=== PATIENT | male | born 1995 ===

== ENCOUNTER 2023-09-15 08:16 | Observation (INO) ==
--- NOTE | 2023-09-15 08:35 | Emergency Department Note ---
History of Present Illness General Chief complaint: Abdominal Pain Stated complaint: ABD PAIN History of Present Illness Maximum Pain Intensity: 10 NAME: YONG TOLEDO AGE: 28 SEX: M : 1995 ARRIVES VIA: Walk-In INFORMANT: Patient ED PROVIDER(S): JAMES Bazan, Cesar Cary MD The patient is a 28-year-old male who arrives to the emergency department for evaluation of severe right lower quadrant abdominal pain. He reports that began last night around 10 PM. He reports he has had some nausea, however no vomiting. He denies fever, however he reports significant pain with any type of movement, sitting, standing or walking. He denies testicular pain, urinary discomfort, or difficulty with bowel movements. His vital signs are currently stable, he is afebrile, non-toxic appearing. Home Medications Medication Instructions Recorded Confirmed Type febuxostat 40 mg tablet 40 mg PO DAILY #90 tabs 09/05/23 09/15/23 Rx rosuvastatin 5 mg tablet 5 mg PO DAILY #90 tabs 09/05/23 09/15/23 Rx ketoconazole 2 % shampoo 1 applic topical UD 09/15/23 09/15/23 History Allergies Allergy/AdvReac Type Severity Reaction Status Date / Time nut - unspecified Allergy Intermediate Itching Unverified 09/15/23 11:03 Past Med/Surg History Problem List (Updated 09/15/23 @ 16:11 by JAMES Cee) Acute appendicitis (Acute) Acute kidney injury History of nephrectomy, left Solitary right kidney Hyperuricemia Hydronephrosis Solitary left kidney Social History Smoking Status: Never smoker Second Hand Exposure: No; Do You Dip or Chew Tobacco: No; Tobacco Cessation Education Requested by Patient: No Hx Alcohol Use: No Hx Substance Use: No Preferred Language: Turkmen Visual Impairment: No Limitations Hearing Ability: Normal Sales Communications Manager Required: No Beliefs That Will Affect Care: Moravian Moravian Beliefs: no pork products or meat. fish is okay and shrimp okay. and Cultural marital status: Current Living Situation: Spouse and Family current occupational status: employed current occupation: researcher for [employer] How many Children do You have: 1 Other Information That Helps Us Care for You: No Feels Safe at Home: Yes Safety Concerns: Feels Safe At This Time Diet: regular caffeine: Yes (3 cups coffee week) Physical Activity Frequency: Does not Exercise Seatbelt Use: always Do you think of yourself as: straight/heterosexual Gender Identity: Male Assistive Devices: None Physical Exam Vital Signs Vital Signs - 24 hr 09/15/23 08:27 09/15/23 09:10 09/15/23 12:02 Temperature 37 C Temperature Source Temporal Artery Scan Pulse Rate 67 Pulse Rate [Finger] 52 L Pulse Rhythm [Finger] Regular Respiratory Rate 18 18 Respiratory Effort / Characteristics Non-Labored Spontaneous Respiratory Depth Normal Respiratory Pattern Regular Blood Pressure 139/97 Blood Pressure [Right Arm] 130/89 Blood Pressure Mean 111 Blood Pressure Mean [Right Arm] 102 Pulse Oximetry 99 99 100 Oxygen Delivery Method Room Air Room Air Room Air Sepsis Recent Fever Within 48 Hours No Sepsis New/Unexplained Change in Mental Status No Sepsis Action Taken by Nursing No Action Required VITALS: Vitals are noted on the nurse's note and reviewed by myself. Vital signs stable. GENERAL: 28-year-old male, in no acute distress, nondiaphoretic, well-developed well-nourished. SKIN: The skin was without rashes, erythema, edema, or bruising. HEAD: Normocephalic atraumatic. HEART: Regular rate and rhythm without murmurs gallops or rubs. LUNGS: Clear to auscultation bilaterally without wheezes, rales or rhonchi. No retractions or accessory muscle use. ABDOMEN: Positive bowel sounds x 4. Soft, tender to palpation right lower quadrant, rebound tenderness present. MUSCULOSKELETAL: No muscle atrophy, erythema, or edema noted. Normal gait. Strength 5/5 throughout. NEURO: Patient was alert and oriented to person place and time. No focal neurological deficits. Course Administered Medications Oxycodone/Acetaminophen (Oxycodone/Acetaminophen 5mg/325mg Tab) 1 tab PO Q4H PRN PRN Reason: MODERATE Pain (4,5,6) & Pre PT Stop: 09/29/23 15:00 Last Admin: 09/15/23 15:46 Dose: 1 tab Documented By: SEFERINO Oxycodone/Acetaminophen (Oxycodone/Acetaminophen 5mg/325mg Tab) 2 tab PO Q4H PRN PRN Reason: SEVERE Pain (7,8,9,10) Stop: 09/29/23 15:00 Last Admin: 09/15/23 15:47 Dose: 2 tab Documented By: SEFERINO Discontinued Medications Bupivacaine HCl (Bupivacaine 0.5 % 5 Mg/1 Ml Mpf 30ml Vial) Confirm Administered Dose 30 ml .ROUTE .STK-MED ONE Stop: 09/15/23 12:43 Last Admin: 09/15/23 13:18 Dose: 30 ml Documented By: GEORGINA Sodium Chloride (Nss) 1,000 mls @ 999 mls/hr IV .Q1H1M STA Stop: 09/15/23 09:44 Last Infusion: 09/15/23 10:30 Dose: Infused Documented By: Admin: 09/15/23 08:54 Dose: 999 mls/hr Documented By: HI Ceftriaxone Sodium (Rocephin) 2,000 mg in 50 mls @ 100 mls/hr IV NOW STA Stop: 09/15/23 10:19 Last Infusion: 09/15/23 10:39 Dose: Infused Documented By: Admin: 09/15/23 10:06 Dose: 100 mls/hr Documented By: HI Metronidazole (Flagyl) 500 mg in 100 mls @ 100 mls/hr IV NOW STA; Protocol Stop: 09/15/23 10:49 Last Infusion: 09/15/23 11:51 Dose: Infused Documented By: Admin: 09/15/23 10:06 Dose: 100 mls/hr Documented By: HI Ioversol (Optiray 320 100ml) 94 ml IV ONCE ONE Stop: 09/15/23 09:30 Last Admin: 09/15/23 09:29 Dose: 94 ml Documented By: PRABHU Morphine Sulfate (Morphine Sulfate 4 Mg/Ml 1 Ml Carp\Vial) 4 mg IV NOW STA Stop: 09/15/23 08:45 Last Admin: 09/15/23 08:54 Dose: 4 mg Documented By: HI Morphine Sulfate (Morphine Sulfate 4 Mg/Ml 1 Ml Carp\Vial) 4 mg IV NOW STA Stop: 09/15/23 09:54 Last Admin: 09/15/23 10:06 Dose: 4 mg Documented By: HI Ondansetron HCl (Ondansetron Inj 2 Mg/Ml 2 Ml Vial) 4 mg IV NOW STA Stop: 09/15/23 08:45 Last Admin: 09/15/23 08:53 Dose: 4 mg Documented By: HI Medical Decision Making Differential Diagnosis Appendicitis, testicular torsion, infections, diverticulitis, UTI, obstruction, mesenteric ischemia, aortic pathology, inflammatory bowel disease, renal colic, PUD, pancreatitis, biliary pathology, hernia, volvulus, constipation, as well as other pathologies. Medical Records Attestation: I reviewed the patient's medical records. Home Medications Current Medication List: was personally reviewed by me Laboratory Data Attestation: I reviewed the patient's lab results. Leukocytosis, 13.93. Stable hemoglobin and hematocrit, no electrolyte abnormalities lactate 1.0 urinalysis negative for infection 09/15/23 08:50 09/15/23 08:50 Lab Results 09/15/23 09/15/23 09/15/23 Range/Units 08:50 09:02 09:07 WBC 13.93 H (4.8-10.8) K/ul RBC 5.45 (4.70-6.10) M/uL Hgb 15.2 (14.0-18.0) g/dl POC Hgb 14.3 (14.0-18.0) g/dl Hct 45.7 (42.0-52.0) % POC Hct 42 (42-52) % MCV 83.9 (80.0-100.0) fL MCH 27.9 (25.0-34.0) pg MCHC 33.3 (32.0-36.0) g/dL RDW Std Deviation 37.8 (36.4-46.3) fL RDW Coeff of Sabrina 12.5 (11.5-14.5) % Plt Count 220 (130-400) K/uL MPV 12.1 (9.4-12.4) fL Immature Gran % (Auto) 0.5 % Neut % (Auto) 79.1 % Lymph % (Auto) 14.0 % Pender % (Auto) 5.8 % Eos % (Auto) 0.4 % Baso % (Auto) 0.2 % Neut # (Auto) 11.02 H (1.40-6.50) K/uL Lymph # (Auto) 1.95 (1.20-3.40) K/uL Pender # (Auto) 0.81 H (0.11-0.59) K/uL Eos # (Auto) 0.05 (0.00-0.50) K/uL Baso # (Auto) 0.03 (0.00-0.20) K/uL Immature Gran # (Auto) 0.07 (0.01-0.20) K/uL POC Sodium 140 (135-144) mmol/L Sodium 138 (136-145) mmol/L POC Potassium 3.8 (3.3-5.0) mmol/L Potassium 4.1 (3.5-5.1) mmol/L POC Chloride 103 (101-112) mmol/L Chloride 103 (98-107) mmol/L Carbon Dioxide 29 (21-32) mmol/L POC Total CO2 28 (24-31) mmol/L Anion Gap 6 (3-11) POC Anion Gap 14.0 L (16-25) mmol/L POC BUN 14 (7-18) mg/dl BUN 15 (6-23) mg/dl Creatinine 1.17 (0.6-1.4) mg/dl POC Creatinine 1.2 (0.6-1.3) mg/dl Est Cr Clr Drug Dosing 91.4 ml/min Est GFR ( Amer) 98.4 ml/min Est GFR (Non-Af Amer) 84.9 ml/min BUN/Creatinine Ratio 12.8 (10-20) Glucose 109 H (70-99(Fasting)) mg/dl POC Glucose (other) 108 H (70-99) mg/dl Lactate 1.0 (0.4-2.0) mmol/L Calcium 10.4 H (8.6-10.3) mg/dl POC Ioniz Calcium Chelita 1.15 (1.12-1.32) mmol/l Total Bilirubin 0.4 (0.2-1.0) mg/dl AST 25 (13-39) U/L ALT 36 (7-52) U/L Alkaline Phosphatase 52 (34-104) U/L Total Protein 7.9 (6.0-8.3) gm/dl Albumin 4.8 (3.4-5.0) gm/dl Globulin 3.1 (2.5-4.0) gm/dl Albumin/Globulin Ratio 1.5 (0.9-2) Lipase 17 (11-82) U/L Urine Color Urine Appearance (Clear) Urine pH (4.5-7.5) Ur Specific [place] (1.000-1.030) Urine Protein (Negative) Urine Glucose (UA) (Negative) Urine Ketones (Negative) Urine Blood (Negative) Urine Nitrite (Negative) Urine Bilirubin (Negative) Urine Urobilinogen (Negative) Ur Leukocyte Esterase (Negative) 09/15/23 Range/Units 09:15 WBC (4.8-10.8) K/ul RBC (4.70-6.10) M/uL Hgb (14.0-18.0) g/dl POC Hgb (14.0-18.0) g/dl Hct (42.0-52.0) % POC Hct (42-52) % MCV (80.0-100.0) fL MCH (25.0-34.0) pg MCHC (32.0-36.0) g/dL RDW Std Deviation (36.4-46.3) fL RDW Coeff of Sabrina (11.5-14.5) % Plt Count (130-400) K/uL MPV (9.4-12.4) fL Immature Gran % (Auto) % Neut % (Auto) % Lymph % (Auto) % Pender % (Auto) % Eos % (Auto) % Baso % (Auto) % Neut # (Auto) (1.40-6.50) K/uL Lymph # (Auto) (1.20-3.40) K/uL Pender # (Auto) (0.11-0.59) K/uL Eos # (Auto) (0.00-0.50) K/uL Baso # (Auto) (0.00-0.20) K/uL Immature Gran # (Auto) (0.01-0.20) K/uL POC Sodium (135-144) mmol/L Sodium (136-145) mmol/L POC Potassium (3.3-5.0) mmol/L Potassium (3.5-5.1) mmol/L POC Chloride (101-112) mmol/L Chloride (98-107) mmol/L Carbon Dioxide (21-32) mmol/L POC Total CO2 (24-31) mmol/L Anion Gap (3-11) POC Anion Gap (16-25) mmol/L POC BUN (7-18) mg/dl BUN (6-23) mg/dl Creatinine (0.6-1.4) mg/dl POC Creatinine (0.6-1.3) mg/dl Est Cr Clr Drug Dosing ml/min Est GFR ( Amer) ml/min Est GFR (Non-Af Amer) ml/min BUN/Creatinine Ratio (10-20) Glucose (70-99(Fasting)) mg/dl POC Glucose (other) (70-99) mg/dl Lactate (0.4-2.0) mmol/L Calcium (8.6-10.3) mg/dl POC Ioniz Calcium [place] (1.12-1.32) mmol/l Total Bilirubin (0.2-1.0) mg/dl AST (13-39) U/L ALT (7-52) U/L Alkaline Phosphatase (34-104) U/L Total Protein (6.0-8.3) gm/dl Albumin (3.4-5.0) gm/dl Globulin (2.5-4.0) gm/dl Albumin/Globulin Ratio (0.9-2) Lipase (11-82) U/L Urine Color Yellow Urine Appearance Clear (Clear) Urine pH 5.5 (4.5-7.5) Ur Specific [place] 1.016 (1.000-1.030) Urine Protein Negative (Negative) Urine Glucose (UA) Negative (Negative) Urine Ketones Negative (Negative) Urine Blood Negative (Negative) Urine Nitrite Negative (Negative) Urine Bilirubin Negative (Negative) Urine Urobilinogen Negative (Negative) Ur Leukocyte Esterase Negative (Negative) Imaging Data Radiologist's Impression: Abdomen/Pelvis CT 09/15/23 08:44 CT SCAN OF THE ABDOMEN AND PELVIS WITH IV CONTRAST CLINICAL HISTORY: Right lower quadrant abdominal pain. COMPARISON STUDY: No priors. TECHNIQUE: Following the IV administration of 94 cc of Optiray 320, CT scan of the abdomen and pelvis is performed from the lung bases to the proximal femora. Images are reviewed in the axial, sagittal, and coronal planes. IV contrast was administered without complication. A dose lowering technique was utilized adhering to the principles of ALARA. CT DOSE: 993.49 mGy.cm FINDINGS: Lung bases: The heart is normal in size and without pericardial effusion. The lung bases are clear. Liver: The contrast-enhanced liver is normal in size, contour, and attenuation. There is no intrahepatic biliary ductal dilatation. The hepatic veins and portal veins are patent. Gallbladder: Unremarkable. Spleen: Normal in size and attenuation. Pancreas: Unremarkable. Adrenal glands: Unremarkable. Kidneys: The left kidney is not identified and presumed congenitally versus surgically absent. The right kidney is normal in size and without hydronephrosis. The right kidney enhances normally. Abdominal vasculature: The abdominal aorta is normal in course and caliber noting mild but age is advanced atherosclerotic plaque. Bowel: There is no bowel obstruction. The mid to distal appendix is dilated and fluid-filled, measuring up to 10 mm in diameter. This is best seen on axial image #274. The appendiceal wall is thickened and hyperemic with surrounding infiltration and trace fluid. Findings are consistent with acute appendicitis. No abscess is seen. Peritoneum: No intraperitoneal free air is seen. There is trace free fluid in the pelvis.. Lymphadenopathy: None. Pelvic viscera: The bladder, prostate, and seminal vesicles are normal as visualized. Skeletal structures: No lytic or blastic lesions are seen. IMPRESSION: 1. Mild acute appendicitis. There is no evidence of abscess or perforation. 2. Trace free fluid in the pelvis is nonspecific and likely reactive. 3. The left kidney is not identified and presumed congenitally versus surgically absent. Correlate clinically. 4. Additional findings as above. ACT 112: Negative or not required by law. Electronically signed by: Mynor Gray M.D. 09/15/2023 9:44 AM Blood Pressure Blood Pressure Findings: Normal blood pressure MDM Narrative The patient is a 28-year-old male who arrives to the emergency department for the above-stated complaint. Upon examination the patient appears to present as an acute appendicitis. Saline lock was established, CBC, CMP, lactate, urinalysis were obtained. CBC shows a leukocytosis of 13.93, stable hemoglobin and hematocrit, CMP is unremarkable, lactate is negative, urinalysis is negative for infection. CT imaging of the abdomen and pelvis with IV contrast was obtained which showed a mild acute appendicitis. There is no evidence of abscess or perforation. Patient was started on IV fluids, IV Rocephin, as well as IV Flagyl. He was provided with IV morphine and IV Zofran for nausea and pain. Consult from Dr. Carrion from general surgery was obtained who recommended surgical intervention. Dr. Carrion will accept the patient under her care at this time, please refer to her documentation for further patient evaluation and treatment. Impression & Plan Acute appendicitis Discharge Plan Visit Data Chief Complaint: Abdominal Pain Stated Complaint: ABD PAIN ED Provider: Cesar Cary ED Midlevel Provider: Yesica Tracy Discharge Problem: Acute appendicitis Discharge Problem: Acute appendicitis Qualifiers: Acute appendicitis type: other Qualified Code(s): K35.890 - Other acute appendicitis without perforation or gangrene
[2023-09-15] MEDS: ONDANSETRON INJ 2 MG/ML 2 ML VIAL IV STA (08:53)
[2023-09-15] MEDS: MoRPHine SULFATE 4 MG/ML 1 ML CARP\\VIAL IV STA ×2 (08:54→10:06)
[2023-09-15] MEDS: SODIUM CHLORIDE 0.9% 1,000 ML IV STA (08:54)
[2023-09-15 09:18] LABS: Basophils # (auto) 0.03 K/uL (0.00-0.20); Basophils % (auto) 0.2 %; Eosinophils # (auto) 0.05 K/uL (0.00-0.50); Eosinophils % (auto) 0.4 %; Hematocrit (blood only) 45.7 % (42.0-52.0); Hemoglobin 15.2 g/dl (14.0-18.0); Immature Granulocytes # (auto) 0.07 K/uL (0.01-0.20); Immature Granulocytes % (auto) 0.5 %; Lymphocytes # (auto) 1.95 K/uL (1.20-3.40); Mean Corpuscular Hemoglobin 27.9 pg (25.0-34.0); Mean Corpuscular Hgb Conc 33.3 g/dL (32.0-36.0); Mean Corpuscular Volume 83.9 fL (80.0-100.0); Mean Platelet Volume 12.1 fL (9.4-12.4); Monocytes # (auto) 0.81 K/uL (0.11-0.59); Monocytes % (auto) 5.8 %; Neutrophils # (auto) 11.02 K/uL (1.40-6.50); Neutrophils % (auto) 79.1 %; Platelet Count 220 K/uL (130-400); RDW Coefficient of Variation 12.5 % (11.5-14.5); RDW Standard Deviation 37.8 fL (36.4-46.3); Red Blood Count 5.45 M/uL (4.70-6.10); White Blood Count 13.93 K/ul (4.8-10.8)
[2023-09-15 09:20] LABS: iSTAT Creatinine 1.2 mg/dl (0.6-1.3); iSTAT Hemoglobin 14.3 g/dl (14.0-18.0); iSTAT Ionized Calcium 1.15 mmol/l (1.12-1.32); iSTAT Potassium 3.8 mmol/L (3.3-5.0)
[2023-09-15 09:27] LABS: Albumin Globulin Ratio 1.5 (0.9-2); Albumin Level 4.8 gm/dl (3.4-5.0); BUN Creatinine Ratio 12.8 (10-20); Bilirubin,Total 0.4 mg/dl (0.2-1.0); Calcium 10.4 mg/dl (8.6-10.3); Creatinine Clr Calc Pharmacy 91.4 ml/min; Est GFR (African American) 98.4 ml/min; Est GFR (Non-African American) 84.9 ml/min; Globulin 3.1 gm/dl (2.5-4.0); Potassium 4.1 mmol/L (3.5-5.1); Total Protein 7.9 gm/dl (6.0-8.3)
[2023-09-15] MEDS: OPTIRAY 320 100ml IV ONE (09:29)
[2023-09-15 09:36] LABS: Appearance Urine Clear (Clear); Bilirubin Urine Negative (Negative); Blood Urine Negative (Negative); Color Urine Yellow; Glucose Urine UA Negative (Negative); Ketones Urine Negative (Negative); Leukocyte Esterase Urine Negative (Negative); Nitrite Urine Negative (Negative); Protein Urine Negative (Negative); Specific Gravity Urine 1.016 (1.000-1.030); Urobilinogen Urine Negative (Negative); pH Urine 5.5 (4.5-7.5)
--- NOTE | 2023-09-15 09:47 | CT Scan Report ---
CT SCAN OF THE ABDOMEN AND PELVIS WITH IV CONTRAST CLINICAL HISTORY: Right lower quadrant abdominal pain. COMPARISON STUDY: No priors. TECHNIQUE: Following the IV administration of 94 cc of Optiray 320, CT scan of the abdomen and pelvi s is performed from the lung bases to the proximal femora. Images are reviewed in the axial, sagittal , and coronal planes. IV contrast was administered without complication. A dose lowering technique wa s utilized adhering to the principles of ALARA. CT DOSE: 993.49 mGy.cm FINDINGS: Lung bases: The heart is normal in size and without pericardial effusion. The lung bases are clear. Liver: The contrast-enhanced liver is normal in size, contour, and attenuation. There is no intrahepa tic biliary ductal dilatation. The hepatic veins and portal veins are patent. Gallbladder: Unremarkable. Spleen: Normal in size and attenuation. Pancreas: Unremarkable. Adrenal glands: Unremarkable. Kidneys: The left kidney is not identified and presumed congenitally versus surgically absent. The ri ght kidney is normal in size and without hydronephrosis. The right kidney enhances normally. Abdominal vasculature: The abdominal aorta is normal in course and caliber noting mild but age is adv anced atherosclerotic plaque. Bowel: There is no bowel obstruction. The mid to distal appendix is dilated and fluid-filled, measuri ng up to 10 mm in diameter. This is best seen on axial image #274. The appendiceal wall is thickened and hyperemic with surrounding infiltration and trace fluid. Findings are consistent with acute appen dicitis. No abscess is seen. Peritoneum: No intraperitoneal free air is seen. There is trace free fluid in the pelvis.. Lymphadenopathy: None. Pelvic viscera: The bladder, prostate, and seminal vesicles are normal as visualized. Skeletal structures: No lytic or blastic lesions are seen. IMPRESSION: 1. Mild acute appendicitis. There is no evidence of abscess or perforation. 2. Trace free fluid in the pelvis is nonspecific and likely reactive. 3. The left kidney is not identified and presumed congenitally versus surgically absent. Correlate cl inically. 4. Additional findings as above. ACT 112: Negative or not required by law. Electronically signed by: Mynor Gray M.D. 09/15/2023 9:44 AM
[2023-09-15] MEDS: metroNIDAZOLE 500 MG/100 ML BAG IV STA (10:06)
[2023-09-15] MEDS: cefTRIAXone SODIUM 2,000 MG/50 ML BAG IV STA (10:06)
--- NOTE | 2023-09-15 11:15 | History & Physical Report ---
Date of Service September 15, 2023 Assessment & Plan (1) Solitary right kidney: Plan: Will minimize nsaid use (2) Acute appendicitis: Plan: Discussed laparoscopic appendectomy with expected 1-2 week recovery period and overnight hospital stay. Risks of bleeding, infection, postop abscess/ ileus , need for larger open procedure, negative appy all reviewed. Consent signed. For OR today. History of Present Illness Chief Complaint: abdominal pain Primary Care Provider: [facility] 28 yr old man with history of left lap assisted nephrectomy for atrophic left kidney with hydroureternephrosis who presents with right lower quadrant pain of 1 days duration. He notes something similar in 2017 but at that time, the kidney issue was identified and that was concentrated on. Did well until after lunch yesterday when developed a jagging, poking sensation in the abdomen. This was constant and of moderate intensity. Thought it might be acid reflux. Dinner was later than usual (around 10 pm) and after this had severe pain in the right lower quadrant, worse with activity. No fevers at home. No nausea/ vomiting. No change in bowel habits. Now also noticing some chills and legs feel restless. Last PO intake around 2 am. Presented to ER with findings of acute appendicitis on CT scan, mild leukocytosis. Also with history of ACL repairs in both knees. Allergies Allergy/AdvReac Type Severity Reaction Status Date / Time nut - unspecified Allergy Intermediate Itching Unverified 09/15/23 11:03 Home Medications Medication Instructions Recorded Confirmed Type febuxostat 40 mg tablet 40 mg PO DAILY #90 tabs 09/05/23 09/15/23 Rx rosuvastatin 5 mg tablet 5 mg PO DAILY #90 tabs 09/05/23 09/15/23 Rx ketoconazole 2 % shampoo 1 applic topical UD 09/15/23 09/15/23 History Past Med/Surg History Problem List (Updated 09/15/23 @ 11:14 by Sawti Carrion MD) Acute appendicitis Acute kidney injury History of nephrectomy, left Solitary right kidney Hyperuricemia Hydronephrosis Solitary left kidney Social History Smoking Status: Never smoker Do You Dip or Chew Tobacco: No; Hx Alcohol Use: No Hx Substance Use: No Preferred Language: Latvian Visual Impairment: No Limitations Hearing Ability: Normal Brush Polisher Required: No marital status: Current Living Situation: Spouse current occupational status: employed current occupation: researcher for [employer] How many Children do You have: 1 Feels Safe at Home: Yes Diet: regular caffeine: Yes (3 cups coffee week) Physical Activity Frequency: Does not Exercise Seatbelt Use: always Do you think of yourself as: straight/heterosexual Gender Identity: Male Assistive Devices: Glasses Review of Systems Review of Systems: All systems reviewed & are unremarkable except as noted in HPI & below Physical Exam Constitutional: WD/WN, vitals as above Eyes: PERRL, conjunctivae normal, anicteric sclerae Neck: trachea midline, no thyromegaly Respiratory: normal respiratory effort, lungs clear to auscultation Cardiovascular: RRR, no murmur, no edema Gastrointestinal (Abdomen): Inspection/Auscultation: abdomen normal to inspection, normal bowel sounds and + abdominal surgical incision (left flank and lap sites); abdomen not distended Percussion/Palpation: + abdomen tender (pos Rovsing's sign) and abdomen soft; no guarding Musculoskeletal: Extremities: extremities normal to inspection Neurologic: awake; no focal motor deficits Psychiatric: A+Ox3, euthymic affect Results & Data Results & Data Vital Signs (Past 12 Hours) Vital Signs Temp Pulse Resp BP Pulse Ox O2 Del Method 09/15/23 09:10 99 Room Air 09/15/23 08:27 37 C 67 18 139/97 99 Room Air Laboratory Results 09/15/23 09/15/23 09/15/23 Range/Units 09:15 09:07 09:02 WBC (4.8-10.8) K/ul RBC (4.70-6.10) M/uL Hgb (14.0-18.0) g/dl POC Hgb 14.3 (14.0-18.0) g/dl Hct (42.0-52.0) % POC Hct 42 (42-52) % MCV (80.0-100.0) fL MCH (25.0-34.0) pg MCHC (32.0-36.0) g/dL RDW Std Deviation (36.4-46.3) fL RDW Coeff of Sabrina (11.5-14.5) % Plt Count (130-400) K/uL MPV (9.4-12.4) fL Immature Gran % (Auto) % Neut % (Auto) % Lymph % (Auto) % Carroll % (Auto) % Eos % (Auto) % Baso % (Auto) % Neut # (Auto) (1.40-6.50) K/uL Lymph # (Auto) (1.20-3.40) K/uL Carroll # (Auto) (0.11-0.59) K/uL Eos # (Auto) (0.00-0.50) K/uL Baso # (Auto) (0.00-0.20) K/uL Immature Gran # (Auto) (0.01-0.20) K/uL POC Sodium 140 (135-144) mmol/L Sodium (136-145) mmol/L POC Potassium 3.8 (3.3-5.0) mmol/L Potassium (3.5-5.1) mmol/L POC Chloride 103 (101-112) mmol/L Chloride (98-107) mmol/L Carbon Dioxide (21-32) mmol/L POC Total CO2 28 (24-31) mmol/L Anion Gap (3-11) POC Anion Gap 14.0 L (16-25) mmol/L POC BUN 14 (7-18) mg/dl BUN (6-23) mg/dl Creatinine (0.6-1.4) mg/dl POC Creatinine 1.2 (0.6-1.3) mg/dl Est Cr Clr Drug Dosing ml/min Est GFR ( Amer) ml/min Est GFR (Non-Af Amer) ml/min BUN/Creatinine Ratio (10-20) Glucose (70-99(Fasting)) mg/dl POC Glucose (other) 108 H (70-99) mg/dl Lactate 1.0 (0.4-2.0) mmol/L Calcium (8.6-10.3) mg/dl POC Ioniz Calcium Chelita 1.15 (1.12-1.32) mmol/l Total Bilirubin (0.2-1.0) mg/dl AST (13-39) U/L ALT (7-52) U/L Alkaline Phosphatase (34-104) U/L Total Protein (6.0-8.3) gm/dl Albumin (3.4-5.0) gm/dl Globulin (2.5-4.0) gm/dl Albumin/Globulin Ratio (0.9-2) Lipase (11-82) U/L Urine Color Yellow Urine Appearance Clear (Clear) Urine pH 5.5 (4.5-7.5) Ur Specific [place] 1.016 (1.000-1.030) Urine Protein Negative (Negative) Urine Glucose (UA) Negative (Negative) Urine Ketones Negative (Negative) Urine Blood Negative (Negative) Urine Nitrite Negative (Negative) Urine Bilirubin Negative (Negative) Urine Urobilinogen Negative (Negative) Ur Leukocyte Esterase Negative (Negative) 09/15/23 Range/Units 08:50 WBC 13.93 H (4.8-10.8) K/ul RBC 5.45 (4.70-6.10) M/uL Hgb 15.2 (14.0-18.0) g/dl POC Hgb (14.0-18.0) g/dl Hct 45.7 (42.0-52.0) % POC Hct (42-52) % MCV 83.9 (80.0-100.0) fL MCH 27.9 (25.0-34.0) pg MCHC 33.3 (32.0-36.0) g/dL RDW Std Deviation 37.8 (36.4-46.3) fL RDW Coeff of Sabrina 12.5 (11.5-14.5) % Plt Count 220 (130-400) K/uL MPV 12.1 (9.4-12.4) fL Immature Gran % (Auto) 0.5 % Neut % (Auto) 79.1 % Lymph % (Auto) 14.0 % Carroll % (Auto) 5.8 % Eos % (Auto) 0.4 % Baso % (Auto) 0.2 % Neut # (Auto) 11.02 H (1.40-6.50) K/uL Lymph # (Auto) 1.95 (1.20-3.40) K/uL Carroll # (Auto) 0.81 H (0.11-0.59) K/uL Eos # (Auto) 0.05 (0.00-0.50) K/uL Baso # (Auto) 0.03 (0.00-0.20) K/uL Immature Gran # (Auto) 0.07 (0.01-0.20) K/uL POC Sodium (135-144) mmol/L Sodium 138 (136-145) mmol/L POC Potassium (3.3-5.0) mmol/L Potassium 4.1 (3.5-5.1) mmol/L POC Chloride (101-112) mmol/L Chloride 103 (98-107) mmol/L Carbon Dioxide 29 (21-32) mmol/L POC Total CO2 (24-31) mmol/L Anion Gap 6 (3-11) POC Anion Gap (16-25) mmol/L POC BUN (7-18) mg/dl BUN 15 (6-23) mg/dl Creatinine 1.17 (0.6-1.4) mg/dl POC Creatinine (0.6-1.3) mg/dl Est Cr Clr Drug Dosing 91.4 ml/min Est GFR ( Amer) 98.4 ml/min Est GFR (Non-Af Amer) 84.9 ml/min BUN/Creatinine Ratio 12.8 (10-20) Glucose 109 H (70-99(Fasting)) mg/dl POC Glucose (other) (70-99) mg/dl Lactate (0.4-2.0) mmol/L Calcium 10.4 H (8.6-10.3) mg/dl POC Ioniz Calcium Chelita (1.12-1.32) mmol/l Total Bilirubin 0.4 (0.2-1.0) mg/dl AST 25 (13-39) U/L ALT 36 (7-52) U/L Alkaline Phosphatase 52 (34-104) U/L Total Protein 7.9 (6.0-8.3) gm/dl Albumin 4.8 (3.4-5.0) gm/dl Globulin 3.1 (2.5-4.0) gm/dl Albumin/Globulin Ratio 1.5 (0.9-2) Lipase 17 (11-82) U/L Urine Color Urine Appearance (Clear) Urine pH (4.5-7.5) Ur Specific [place] (1.000-1.030) Urine Protein (Negative) Urine Glucose (UA) (Negative) Urine Ketones (Negative) Urine Blood (Negative) Urine Nitrite (Negative) Urine Bilirubin (Negative) Urine Urobilinogen (Negative) Ur Leukocyte Esterase (Negative) Diagnostic Findings CT SCAN OF THE ABDOMEN AND PELVIS WITH IV CONTRAST CLINICAL HISTORY: Right lower quadrant abdominal pain. COMPARISON STUDY: No priors. TECHNIQUE: Following the IV administration of 94 cc of Optiray 320, CT scan of the abdomen and pelvis is performed from the lung bases to the proximal femora. Images are reviewed in the axial, sagittal, and coronal planes. IV contrast was administered without complication. A dose lowering technique was utilized adhering to the principles of ALARA. CT DOSE: 993.49 mGy.cm FINDINGS: Lung bases: The heart is normal in size and without pericardial effusion. The lung bases are clear. Liver: The contrast-enhanced liver is normal in size, contour, and attenuation. There is no intrahepatic biliary ductal dilatation. The hepatic veins and portal veins are patent. Gallbladder: Unremarkable. Spleen: Normal in size and attenuation. Pancreas: Unremarkable. Adrenal glands: Unremarkable. Kidneys: The left kidney is not identified and presumed congenitally versus surgically absent. The right kidney is normal in size and without hydronephrosis. The right kidney enhances normally. Abdominal vasculature: The abdominal aorta is normal in course and caliber noting mild but age is advanced atherosclerotic plaque. Bowel: There is no bowel obstruction. The mid to distal appendix is dilated and fluid-filled, measuring up to 10 mm in diameter. This is best seen on axial image #274. The appendiceal wall is thickened and hyperemic with surrounding infiltration and trace fluid. Findings are consistent with acute appendicitis. No abscess is seen. Peritoneum: No intraperitoneal free air is seen. There is trace free fluid in the pelvis.. Lymphadenopathy: None. Pelvic viscera: The bladder, prostate, and seminal vesicles are normal as visualized. Skeletal structures: No lytic or blastic lesions are seen. IMPRESSION: 1. Mild acute appendicitis. There is no evidence of abscess or perforation. 2. Trace free fluid in the pelvis is nonspecific and likely reactive. 3. The left kidney is not identified and presumed congenitally versus surgically absent. Correlate clinically. (2) Acute appendicitis Acute appendicitis type: with localized peritonitis Appendicitis gangrene presence: without gangrene Appendicitis perforation presence: without perforation Appendicitis abscess presence: without abscess Qualified Code(s): K35.30 - Acute appendicitis with localized peritonitis, without perforation or gangrene
[2023-09-15] MEDS ORDERED: fentaNYL citrate PF 100 MCG/2 ML VIAL ONE (11:38)
[2023-09-15] MEDS ORDERED: DEXAMETHASONE SOD INJ 4 MG/ML VIAL ONE (11:38)
[2023-09-15] MEDS ORDERED: ONDANSETRON INJ 2 MG/ML 2 ML VIAL ONE (11:38)
[2023-09-15] MEDS ORDERED: LIDOCAINE 2% 2 ML VIAL/AMP(20MG/ML) INFIL ONE (11:38)
[2023-09-15] MEDS ORDERED: PROPOFOL IV EMULSION 10 MG/ML 20 ML VIAL IV ONE (11:38)
[2023-09-15] MEDS ORDERED: MIDAZOLAM HCL 1 MG/ML 2ML VIAL ONE (11:38)
[2023-09-15] MEDS ORDERED: LARYING-O-JET KIT (LTA) ONE (11:40)
[2023-09-15] MEDS ORDERED: ROCURONIUM BROMIDE 10 MG/ML 5 ML VIAL IV ONE (11:40)
--- NOTE | 2023-09-15 12:11 | Anesthesiology Consultation ---
Date of Service September 15, 2023 Assessment & Plan Chart Review Chart Review: Acceptable Risk for Surgery and Patient NOT seen in Pre Admission Testing Consults Requested none History Surgery Operation Date: 09/15/23 12:00 Proposed Procedures p Laparoscopic Appendectomy - Swati Carrion MD Height/Weight Height: 5 ft 3 in Weight: 85 kg Allergies Allergy/AdvReac Type Severity Reaction Status Date / Time nut - unspecified Allergy Intermediate Itching Unverified 09/15/23 11:03 Medications Home Medications Medication Instructions Recorded Confirmed Last Taken febuxostat 40 mg tablet 40 mg PO DAILY #90 tabs 09/05/23 09/15/23 Unknown rosuvastatin 5 mg tablet 5 mg PO DAILY #90 tabs 09/05/23 09/15/23 Unknown ketoconazole 2 % shampoo 1 applic topical UD 09/15/23 09/15/23 Unknown Social History Smoking Status: Never smoker Do You Dip or Chew Tobacco: No Hx Alcohol Use: No Hx Substance Use: No Physical Exam Vital Signs Last Vital Signs Temp 37 C 09/15/23 08:27 Pulse 52 L 09/15/23 12:02 Resp 18 09/15/23 12:02 BP 130/89 09/15/23 12:02 Pulse Ox 100 09/15/23 12:02 O2 Del Method Room Air 09/15/23 12:02 Testing Laboratory Results 09/15/23 08:50 09/15/23 08:50 Urine Color Yellow 09/15/23 09:15 Urine Appearance Clear (Clear) 09/15/23 09:15 Urine pH 5.5 (4.5-7.5) 09/15/23 09:15 Ur Specific [place] 1.016 (1.000-1.030) 09/15/23 09:15 Urine Protein Negative (Negative) 09/15/23 09:15 Urine Glucose (UA) Negative (Negative) 09/15/23 09:15 Urine Ketones Negative (Negative) 09/15/23 09:15 Urine Nitrite Negative (Negative) 09/15/23 09:15 Ur Leukocyte Esterase Negative (Negative) 09/15/23 09:15 09/15/23 09:07 POC Glucose (other) 108 H
[2023-09-15] MEDS ORDERED: DROPERIDOL 5 MG/2 ML VIAL IV PRN (12:13)
[2023-09-15] MEDS ORDERED: fentaNYL citrate PF 100 MCG/2 ML VIAL IV PRN (12:13)
[2023-09-15] MEDS ORDERED: ATROPINE SULFATE 0.1 MG/ML 10ML SYR IV PRN (12:13)
[2023-09-15] MEDS ORDERED: ePHEDrine sulfate 50 MG/ML AMP IV PRN (12:13)
[2023-09-15] MEDS ORDERED: SUCCINYLCHOLINE 100MG/5ML SYR IV ONE (12:43)
[2023-09-15] MEDS ORDERED: SUGAMMADEX SODIUM 200 MG/2 ML VIAL IV ONE (12:58)
[2023-09-15] MEDS: BUPIVACAINE 0.5 % 5 MG/1 ML MPF 30ML VIAL ONE (13:18)
--- NOTE | 2023-09-15 13:35 | Operative Report ---
Post Operative Report Pre & Post Diagnosis Operation Date: 09/15/23 12:00 Pre-Op Diagnosis: Acute Appendicitis Post-Op Diagnosis: Acute Appendicitis I identified the patient and participated in the time-out.: Yes Procedure Operation Date: 09/15/23 12:00 Actual Procedures p Laparoscopic Appendectomy(Not Applicable) - Swati Carrion MD Surgeon Swati Carrion MD Metal Tester none Estimated Blood Loss 5 Findings Consistent with Post-Op Diagnosis acute suppurative nonperforated appendicitis Fluids 900 cc IVF Specimens appendix Drains none Anesthesia Type General Complications none Disposition Accompanied Patient To Recovery: No Disposition: Recovery Room Indications 28 yr old man who presented with imaging and clinical findings c/w acute appendicitis. Consented for laparoscopic appendectomy. Description of Procedure The patient received antibiotics preoperatively. He voided prior to the surgery. SCD's were placed. His left arm was tucked. After induction of GET, his abdomen was clipped and then prepped and draped. He was placed in [facility]. A supraumbilical incision was made and a veress needle placed into the peritoneal cavity. This was tested with the saline drop test. Initial pressure was 4 mm of Hg and this was taken to 15 mm Hg. A 12 mm trocar was placed with the camera through the trocar site. Once the abdomen was entered, two additional 5 mm trocars were placed under direct vision in the left lower quadrant and midline pubic area. The abdomen was inspected and was within normal limits other than the appendix. The appendix was noted to have suppurative changes at its tip. It was grasped with an endo abbe and a window created at its attachment to the cecum. It was divided with a firing of the RUSTY 45 purple load stapler. The appendiceal mesentery was taken with a second firing of the rodriguez load of the stapler. The appendix was placed in an endobag and removed through the umbilical incision. The abdomen was irrigated and noted to be hemostatic. The trocars were removed. 30 cc of 0.5% marcaine was injected as local anesthesia. The fascia of the umbilical incision was closed with interrupted 0 vicryl sutures. The skin of all three incisions was closed with a running subcuticular 4-0 vicryl suture. Steristrips and sterile dressings were applied. He was awakened and taken to recovery in stable condition. I attest to the content of the Intraoperative Record and any orders documented therein. Any exceptions are noted below.
--- NOTE | 2023-09-15 14:08 | Anesthesiology Progress Note ---
Date of Service September 15, 2023 Anesthesia Post Procedure Vital Signs Vital Signs: Temp Pulse Pulse Pulse Resp BP BP 09/15/23 14:00 75 22 134/87 09/15/23 13:50 83 16 134/96 09/15/23 13:41 36 C L 95 H 19 134/86 09/15/23 12:02 52 L 18 130/89 09/15/23 09:10 09/15/23 08:27 37 C 67 18 139/97 Pulse Ox O2 Del Method O2 Flow Rate 09/15/23 14:00 98 Room Air 09/15/23 13:50 95 Room Air 09/15/23 13:41 100 Oxymask 6 09/15/23 12:02 100 Room Air 09/15/23 09:10 99 Room Air 09/15/23 08:27 99 Room Air Pain Intensity Right Abdomen: Pain Intensity: 10 Transfer of Care Handoff Completed per policy Notes Mental Status: alert / awake / arousable Patient Amnestic to Procedure: Yes Nausea / Vomiting: adequately controlled Pain: adequately controlled Airway Patency, RR, SpO2: stable & adequate BP & HR: stable & adequate Hydration State: stable & adequate Anesthetic Complications: no major complications apparent and Pt Satisfied with anesthetic care
[2023-09-15] MEDS ORDERED: MoRPHine SULFATE 2 MG/ML CARP IV PRN (15:01)
[2023-09-15] MEDS ORDERED: ONDANSETRON INJ 2 MG/ML 2 ML VIAL IV PRN (15:01)
[2023-09-15] MEDS ORDERED: MoRPHine SULFATE 4 MG/ML 1 ML CARP\\VIAL IV PRN (15:01)
[2023-09-15] MEDS: oxyCODONE/ACETAMINOPHEN 5mg/325mg TAB PO PRN ×2 (15:46→15:47)
[2023-09-15] MEDS: LACTATED RINGER'S 1,000 ML IV SCH (18:28)
[2023-09-16] MEDS: ACETAMINOPHEN 325 MG TAB PO PRN (09:24)
[2023-09-16] MEDS: ROSUVASTATIN CALCIUM 5 MG TAB PO SCH (09:24)
[2023-09-16] MEDS: cefTRIAXone SODIUM 2,000 MG in DEXTROSE 5% 50 ML IV SCH (10:08)
--- NOTE | 2023-09-16 10:08 | Surgery Progress Note ---
Date of Service September 16, 2023 Assessment & Plan (1) Acute appendicitis: Plan: s/p lap appy. will discharge today. Admission and Anticipated Discharge Date Admission Date: September 15, 2023 Subjective Doing well. tolerating diet. Ambulating. Using tylenol for pain Physical Exam Gastrointestinal (Abdomen): normal bowel sounds, soft, nontender, no hepatosplenomegaly incisions clean and dry Results & Data Vital Signs (Past 12 Hours) Vital Signs Temp Pulse Pulse Resp BP Pulse Ox O2 Del Method 09/16/23 07:24 36.6 C 60 16 109/70 98 Room Air 09/16/23 04:00 36.5 C 66 14 106/64 97 Room Air 09/16/23 00:07 36.6 C 63 18 115/76 96 Room Air (1) Acute appendicitis Acute appendicitis type: other Qualified Code(s): K35.890 - Other acute appendicitis without perforation or gangrene
--- NOTE | 2023-09-16 10:12 | Discharge Summary ---
Date of Service September 16, 2023 Admission HPI Per Admitting Provider 28 yr old man with history of left lap assisted nephrectomy for atrophic left kidney with hydroureternephrosis who presents with right lower quadrant pain of 1 days duration. He notes something similar in 2017 but at that time, the kidney issue was identified and that was concentrated on. Did well until after lunch yesterday when developed a jagging, poking sensation in the abdomen. This was constant and of moderate intensity. Thought it might be acid reflux. Dinner was later than usual (around 10 pm) and after this had severe pain in the right lower quadrant, worse with activity. No fevers at home. No nausea/ vomiting. No change in bowel habits. Now also noticing some chills and legs feel restless. Last PO intake around 2 am. Presented to ER with findings of acute appendicitis on CT scan, mild leukocytosis. Also with history of ACL repairs in both knees. Admission Exam (Per Admitting) Constitutional WD/WN, vitals as above Eyes PERRL, conjunctivae normal, anicteric sclerae Neck trachea midline, no thyromegaly Respiratory normal respiratory effort, lungs clear to auscultation Cardiovascular RRR, no murmur, no edema Gastrointestinal (Abdomen) normal bowel sounds, soft, nontender, no hepatosplenomegaly Inspection/Auscultation: abdomen normal to inspection, normal bowel sounds and + abdominal surgical incision (left flank and lap sites); abdomen not distended Percussion/Palpation: + abdomen tender (pos Rovsing's sign) and abdomen soft; no guarding Musculoskeletal Extremities: extremities normal to inspection Neurologic awake; no focal motor deficits Psychiatric A+Ox3, euthymic affect Discharge Data Consultations 09/15/23 11:56 ED Decision to Admit Stat Procedures Performed Operation Date: 09/15/23 12:00 Actual Procedures p Laparoscopic Appendectomy(Not Applicable) - Swati Carrion MD Hospital Course (1) Acute appendicitis: s/p lap appy. will discharge today.
[2023-09-17] MEDS ORDERED: cefTRIAXone SODIUM 2,000 MG/50 ML BAG IV SCH (10:00)
== END 2023-09-16 14:30 | disposition home or self-care (01) ==
LOC: 3W 08:16 → ED 08:16 → 3W 12:53